=== PATIENT | female | born 1990 | race Asian ===

== ENCOUNTER 2018-06-22 20:17 | Emergency (ER) | payer OTHER ==
[~2018-06-22] VITALS: Ht 152.4 cm; Wt 89.6 kg
[~2018-06-22 20:17] MED LIST: PREN1TAB52 PO
[2018-06-22 20:18] VITALS: BP 133/86
== END 2018-06-22 21:00 | disposition home or self-care (01) ==
LOC: ED 20:57
DX: R21 Rash and other nonspecific skin eruption (principal)
CPT/HCPCS: 99281

== ENCOUNTER 2018-06-23 14:15 | Outpatient (CLI) | payer OTHER ==
[~2018-06-23] VITALS: Ht 152.4 cm; Wt 88.6 kg
[2018-06-23 15:21] VITALS: BP 118/70
== END 2018-06-23 16:00 | disposition home or self-care (01) ==
LOC: LDOP 14:15
PROVIDERS: ATTEND Obstetrics & Gynecology
DX: O42.92 Full-term premature rupture of membranes, unspecified as to length of time between rupture and onset of labor (principal); Z3A.38 38 weeks gestation of pregnancy
CPT/HCPCS: 59025; 76815; 76818; 89060; Q0114

== ENCOUNTER 2018-06-28 05:29 | Inpatient (IN) | payer OTHER ==
[~2018-06-28] VITALS: Ht 152.4 cm; Wt 87.5 kg
[2018-06-28] MEDS ORDERED: OXYTOCIN 30U/ 0.9% NaCL 500ML 500 ML IV SCH ×2 (05:34→05:37)
[2018-06-28] MEDS ORDERED: LACTATED RINGERS 1,000 ML IV SCH ×4 (05:34→07:38)
[2018-06-28] MEDS: LACTATED RINGERS 1,000 ML IV SCH ×6 (05:37→23:38)
[2018-06-28] MEDS ORDERED: NEWBORN KIT ONE (05:43)
[2018-06-28 05:45] VITALS: BP 120/72
[2018-06-28] MEDS ORDERED: METOCLOPRAMIDE 5 MG/ML, 2ML IV ONE (06:00)
[2018-06-28] MEDS ORDERED: morphine SULFATE 10 MG/ML, 1ML IVPush PRN (06:00)
[2018-06-28] MEDS ORDERED: ACETAMINOPHEN 325 MG TABLET PO PRN ×3 (06:00→08:00)
[2018-06-28] MEDS ORDERED: METHYLERGONOVINE 0.2 MG/ML IM PRN ×2 (06:00→08:00)
[2018-06-28] MEDS ORDERED: ONDANSETRON 2MG/ML, 2ML IV PRN ×3 (06:00→09:00)
[2018-06-28] MEDS ORDERED: DOCUSATE 100 MG CAPSULE PO PRN (06:00)
[2018-06-28] MEDS ORDERED: CEFAZOLIN PMX 1GM/50ML 50 ML IVPB ONE (06:00)
[2018-06-28] MEDS ORDERED: HYDROcodone/APAP 5/325 TABLET PO PRN (06:00)
[2018-06-28] MEDS ORDERED: KETOROLAC 30 MG/1 ML IV SCH (06:00)
[2018-06-28] MEDS ORDERED: MISOPROSTOL 200 MCG TABLET PR PRN ×2 (06:00→08:00)
[2018-06-28] MEDS ORDERED: LACTATED RINGERS 1,000 ML IVBOLUS ONE (06:00)
[2018-06-28] MEDS ORDERED: OXYcodone/APAP 5/325MG TABLET PO PRN (06:00)
[2018-06-28] MEDS ORDERED: SODIUM CITRATE/CITRIC ACID 30 ML UDC PO ONE (06:00)
[2018-06-28 06:13] LABS: BASOPHILS # (AUTO) 0.04 x10^3/uL (0-0.1); BASOPHILS % (AUTO) 1 % (0-1); EOSINOPHILS % (AUTO) 2 % (1-7); LYMPHOCYTES % (AUTO) 26 % (22-44); MD NO; MEAN CORPUSCULAR HEMOGLOBIN 27.9 pg (27.0-34.8); MEAN CORPUSCULAR HGB CONC 33.8 g/dL (32.4-35.8); MEAN CORPUSCULAR VOLUME 82.7 fL (80-100); MEAN PLATELET VOLUME 8.1 fL (7.4-10.4); MONOCYTES # (AUTO) 0.59 x10^3/uL (0.2-0.8); MONOCYTES % (AUTO) 7 % (2-9); NEUTROPHILS # (AUTO) 5.32 x10^3/uL (1.8-6.8); NEUTROPHILS % (AUTO) 64 % (42-75); PLATELET COUNT 214 x10^3/uL (130-400); RED CELL DISTRIBUTION WIDTH 14.2 % (9.6-15.2)
[2018-06-28] MEDS ORDERED: SODIUM CITRATE/CITRIC ACID 30 ML UDC ONE (06:27)
[2018-06-28] MEDS ORDERED: METOCLOPRAMIDE 5 MG/ML, 2ML ONE (06:27)
[2018-06-28] MEDS ORDERED: OXYTOCIN 30U/ 0.9% NaCL 500ML 500 ML ONE (06:28)
[2018-06-28] MEDS ORDERED: CEFAZOLIN 1,000 MG ONE (07:17)
[2018-06-28] MEDS ORDERED: OXYTOCIN 10 UNITS/ML, 1ML ONE (07:17)
[2018-06-28] MEDS ORDERED: FENTANYL PF 100 MCG/2ML ONE (07:17)
[2018-06-28] MEDS ORDERED: EPHEDRINE 50 MG/ML, 1ML ONE (07:17)
[2018-06-28] MEDS ORDERED: KETOROLAC 30 MG/1 ML ONE (07:17)
[2018-06-28] MEDS: OXYTOCIN 30U/ 0.9% NaCL 500ML 500 ML IV SCH ×2 (07:38→17:38)
[2018-06-28] MEDS ORDERED: OXYcodone IR 5MG TABLET PO PRN (08:00)
[2018-06-28] MEDS ORDERED: MEPERIDINE/PF 50 MG/ML IM PRN (08:00)
[2018-06-28] MEDS ORDERED: METOCLOPRAMIDE 5 MG/ML, 2ML IV PRN (08:00)
[2018-06-28] MEDS ORDERED: MEPERIDINE/PF 25MG/0.5ML IM PRN (08:00)
[2018-06-28] MEDS ORDERED: CARBOPROST TROMETHAMINE 250 MCG/ML, 1ML IM PRN (08:00)
[2018-06-28] MEDS ORDERED: KETOROLAC 30 MG/1 ML IM SCH (08:00)
[2018-06-28] MEDS ORDERED: GLYCOPYRROLATE 0.4 MG/2 ML, 2ML ONE (08:00)
[2018-06-28] MEDS ORDERED: BISACODYL 10 MG SUPP PR PRN (08:00)
[2018-06-28] MEDS ORDERED: KETOROLAC 30 MG/1 ML IV PRN (08:00)
[2018-06-28] MEDS ORDERED: OXYcodone 5 MG/5 ML ORAL.SOL UDC PO PRN (09:00)
[2018-06-28] MEDS ORDERED: MORPHINE SULFATE 4 MG/ML, 1ML IVPush PRN (09:00)
[2018-06-28] MEDS: PRENATAL VIT/IRON/FA 1 EACH TABLET PO SCH (09:00)
[2018-06-28] MEDS ORDERED: EPHEDRINE 50 MG/ML, 1ML IVPush PRN (09:00)
[2018-06-28] MEDS ORDERED: MEPERIDINE/PF 25MG/0.5ML IVPush PRN (09:00)
[2018-06-28] MEDS ORDERED: PROMETHAZINE 25 MG/ML, 1ML IV PRN (09:00)
[2018-06-28] MEDS ORDERED: PRENATAL VIT/IRON/FA 1 EACH TABLET PO SCH (09:00)
[2018-06-28] MEDS ORDERED: FENTANYL PF 100 MCG/2ML IV PRN (09:00)
[2018-06-28 10:40] VITALS: BP 122/77
[2018-06-28] MEDS: OXYcodone/APAP 5/325MG TABLET PO PRN ×3 (12:23→22:35)
[2018-06-28] MEDS: KETOROLAC 30 MG/1 ML IVPush SCH ×2 (14:16→20:07)
[2018-06-28 14:25] VITALS: BP 106/67
[2018-06-28] MEDS ORDERED: MEASLES,MUMPS&RUBELLA VACC/PF 0.5 ML SQ-VACC ONE (16:00)
[2018-06-28 16:34] LABS: BASOPHILS # (AUTO) 0.12 x10^3/uL (0-0.1); BASOPHILS % (AUTO) 1 % (0-1); EOSINOPHILS # (AUTO) 0.04 x10^3/uL (0-0.4); EOSINOPHILS % (AUTO) 0 % (1-7); LYMPHOCYTES # (AUTO) 1.92 x10^3/uL (1-3.4); LYMPHOCYTES % (AUTO) 16 % (22-44); MD NO; MEAN CORPUSCULAR HEMOGLOBIN 26.8 pg (27.0-34.8); MEAN CORPUSCULAR VOLUME 83.8 fL (80-100); MONOCYTES # (AUTO) 0.59 x10^3/uL (0.2-0.8); MONOCYTES % (AUTO) 5 % (2-9); NEUTROPHILS # (AUTO) 9.61 x10^3/uL (1.8-6.8); NEUTROPHILS % (AUTO) 78 % (42-75); PLATELET COUNT 207 x10^3/uL (130-400); RED BLOOD COUNT 3.92 x10^6/uL (3.82-5.3); RED CELL DISTRIBUTION WIDTH 14.1 % (9.6-15.2)
[2018-06-28 20:00] VITALS: BP 116/77
[2018-06-28] MEDS: DOCUSATE 100 MG CAPSULE PO PRN (22:34)
[2018-06-29 00:20] VITALS: BP 112/74
[2018-06-29] MEDS: KETOROLAC 30 MG/1 ML IVPush SCH ×4 (02:08→20:12)
[2018-06-29] MEDS: OXYTOCIN 30U/ 0.9% NaCL 500ML 500 ML IV SCH (03:38)
[2018-06-29 04:05] VITALS: BP 107/69
[2018-06-29] MEDS: OXYcodone/APAP 5/325MG TABLET PO PRN ×4 (04:08→21:58)
[2018-06-29] MEDS: LACTATED RINGERS 1,000 ML IV SCH ×2 (05:37→07:38)
[2018-06-29 07:05] VITALS: BP 112/74
[2018-06-29] MEDS: PRENATAL VIT/IRON/FA 1 EACH TABLET PO SCH (08:10)
[2018-06-29] MEDS: DOCUSATE 100 MG CAPSULE PO PRN ×2 (08:10→20:12)
[2018-06-29 19:35] VITALS: BP 114/75
[2018-06-30] MEDS: KETOROLAC 30 MG/1 ML IVPush SCH ×2 (02:00→08:02)
[2018-06-30] MEDS: OXYcodone/APAP 5/325MG TABLET PO PRN ×3 (04:53→13:24)
[2018-06-30] MEDS: DOCUSATE 100 MG CAPSULE PO PRN (08:02)
[2018-06-30 08:07] VITALS: BP 124/80
[2018-06-30] MEDS: PRENATAL VIT/IRON/FA 1 EACH TABLET PO SCH (09:00)
[2018-06-30] MEDS ORDERED: DOCU-131 PO (13:05)
[2018-06-30] MEDS ORDERED: OXYC-302 PO (13:05)
[2018-06-30] MEDS ORDERED: IBUP-1222 PO (13:05)
== END 2018-06-30 14:28 | disposition home or self-care (01) | DRG 787 ==
LOC: LDIP 05:29 → 2NW 10:29
PROVIDERS: ADMIT Obstetrics & Gynecology; ATTEND Obstetrics & Gynecology
PROC: 10D00Z1 Extraction of Products of Conception, Low, Open Approach (ICD-10-PCS; principal; 2018-06-28)
DX: O34.211 Maternal care for low transverse scar from previous cesarean delivery (principal); O99.354 Diseases of the nervous system complicating childbirth; Z3A.39 39 weeks gestation of pregnancy; Z37.0 Single live birth; G43.909 Migraine, unspecified, not intractable, without status migrainosus; Z23 Encounter for immunization
CPT/HCPCS: 36415; 85025; 86850; 86900; G0378; J0690; J1885; J2175; J2405; J3010; J2590; J2765; J7120